=== PATIENT | male | born 1940 | race Caucasian/White ===

== ENCOUNTER 2022-07-14 14:22 | Inpatient (IN) | payer BC, MEDICARE ==
[2022-07-14] MEDS ORDERED: Ondansetron 4 MG/2 ML SDV IVPUSH ONE (14:39)
[2022-07-14] MEDS ORDERED: Sodium Chloride 0.9% 10 ML Syringe FLUSH PRN (14:39)
[2022-07-14] MEDS ORDERED: Diltiazem 25 MG/5 ML SDV IVPUSH ONE (14:40)
[2022-07-14] MEDS ORDERED: Lactated Ringers 1,000 ML IV SCH (14:45)
[2022-07-14 15:21] LABS: ESTIMATED GFR 37 mL/min (>60)
[2022-07-14] MEDS ORDERED: Lactated Ringers 1,000 ML IV ONE (16:30)
[2022-07-14] MEDS ORDERED: Potassium Chloride Riders 40 MEQ in Premix Bag 1 BAG IV ONE (17:14)
[2022-07-14] MEDS ORDERED: Diltiazem 100 MG in Sodium Chloride 0.9% 100 ML IV SCH ×2 (17:15→19:53)
[2022-07-14] MEDS: Potassium Chloride 10 MEQ in Premix Bag 1 BAG IV SCH ×4 (18:01→21:05)
[2022-07-14] MEDS ORDERED: Diltiazem 25 MG/5 ML SDV ONE (19:39)
[2022-07-14] MEDS ORDERED: Albuterol 0.083% 2.5 MG/3 ML Neb Soln NEB PRN (19:53)
[2022-07-14] MEDS ORDERED: Pantoprazole 40 MG Vial IVPUSH SCH (19:53)
[2022-07-14] MEDS ORDERED: LORazepam 2 MG/ML SDV IV PRN (19:53)
[2022-07-14] MEDS: Acetaminophen 325 MG Tab PO PRN (20:13)
[2022-07-14] MEDS: cefTRIAXone 1 GM in Sodium Chloride 0.9% 50 ML IV SCH (21:28)
[2022-07-14] MEDS: Sodium Chloride 0.9% 1,000 ML IV SCH (22:17)
[2022-07-14] MEDS: Nicotine 21 MG/24 Hr Patch TRDERM SCH (23:25)
[2022-07-15] MEDS: Sodium Chloride 0.9% 1,000 ML IV SCH ×2 (05:58→13:38)
[2022-07-15] MEDS: Ondansetron 4 MG/2 ML SDV IV PRN ×2 (06:46→14:43)
[2022-07-15] MEDS ORDERED: Levothyroxine 100 MCG, Levothyroxine 25 MCG PO SCH ×2 (07:30)
[2022-07-15] MEDS ORDERED: Levothyroxine 50 MCG Tab PO SCH (07:30)
[2022-07-15] MEDS: atorvaSTATin 20 MG Tab PO SCH (08:53)
[2022-07-15] MEDS: Nicotine 21 MG/24 Hr Patch TRDERM SCH (08:53)
[2022-07-15] MEDS: prednisoLONE Acetate 1% Ophth Susp 5 ML Bottle EYEBOTH SCH (08:53)
[2022-07-15] MEDS: Tamsulosin 0.4 MG Cap.ER PO SCH (08:53)
[2022-07-15] MEDS: Dutasteride 0.5 MG Cap PO SCH (08:53)
[2022-07-15] MEDS ORDERED: DILTIAZEM HCL 180 MG PO SCH (09:45)
[2022-07-15] MEDS: Diltiazem 180 MG Cap.CD PO SCH ×2 (10:17→20:16)
[2022-07-15] MEDS ORDERED: Warfarin 5 MG Tab PO SCH (13:00)
[2022-07-15] MEDS: Doxycycline 100 MG in Sodium Chloride 0.9% 100 ML IV SCH (14:41)
[2022-07-15] MEDS: Pantoprazole 40 MG Tab.CR PO SCH (14:41)
[2022-07-15] MEDS ORDERED: Pantoprazole 40 MG Vial IVPUSH SCH (16:00)
[2022-07-15] MEDS: Acetaminophen 325 MG Tab PO PRN (20:18)
[2022-07-15] MEDS: cefTRIAXone 1 GM in Sodium Chloride 0.9% 50 ML IV SCH (21:40)
[2022-07-16] MEDS: Doxycycline 100 MG in Sodium Chloride 0.9% 100 ML IV SCH ×3 (02:05→23:53)
[2022-07-16] MEDS ORDERED: Levothyroxine 100 MCG Tab PO SCH (07:30)
[2022-07-16] MEDS: Nicotine 21 MG/24 Hr Patch TRDERM SCH (08:13)
[2022-07-16] MEDS: Diltiazem 180 MG Cap.CD PO SCH ×2 (08:14→20:10)
[2022-07-16] MEDS: prednisoLONE Acetate 1% Ophth Susp 5 ML Bottle EYEBOTH SCH (08:14)
[2022-07-16] MEDS: Tamsulosin 0.4 MG Cap.ER PO SCH (08:14)
[2022-07-16] MEDS: Levothyroxine 50 MCG Tab PO SCH (08:15)
[2022-07-16] MEDS: atorvaSTATin 20 MG Tab PO SCH (08:15)
[2022-07-16] MEDS: Pantoprazole 40 MG Tab.CR PO SCH (08:15)
[2022-07-16] MEDS: Dutasteride 0.5 MG Cap PO SCH (08:15)
[2022-07-16] MEDS: cefTRIAXone 1 GM in Sodium Chloride 0.9% 50 ML IV SCH (21:31)
[2022-07-17] MEDS: Levothyroxine 50 MCG Tab PO SCH (08:12)
[2022-07-17] MEDS: Tamsulosin 0.4 MG Cap.ER PO SCH (08:12)
[2022-07-17] MEDS: Diltiazem 180 MG Cap.CD PO SCH (08:12)
[2022-07-17] MEDS: Dutasteride 0.5 MG Cap PO SCH (08:12)
[2022-07-17] MEDS: Pantoprazole 40 MG Tab.CR PO SCH (08:12)
[2022-07-17] MEDS: atorvaSTATin 20 MG Tab PO SCH (08:12)
[2022-07-17] MEDS: Nicotine 21 MG/24 Hr Patch TRDERM SCH (08:13)
[2022-07-17] MEDS: prednisoLONE Acetate 1% Ophth Susp 5 ML Bottle EYEBOTH SCH (08:13)
== END 2022-07-17 12:19 | disposition home or self-care (01) | DRG 193 ==
LOC: JP.ED 14:22 → JP.ICU 17:14
PROVIDERS: ADMIT Hospitalist; ATTEND Hospitalist
DX: K52.9 Noninfective gastroenteritis and colitis, unspecified (principal); J18.9 Pneumonia, unspecified organism; J96.21 Acute and chronic respiratory failure with hypoxia; I10 Essential (primary) hypertension; J44.0 Chronic obstructive pulmonary disease with (acute) lower respiratory infection; I48.91 Unspecified atrial fibrillation; E86.0 Dehydration; N18.32 Chronic kidney disease, stage 3b; F17.210 Nicotine dependence, cigarettes, uncomplicated; K42.9 Umbilical hernia without obstruction or gangrene; E05.90 Thyrotoxicosis, unspecified without thyrotoxic crisis or storm; Z79.899 Other long term (current) drug therapy; Z79.890 Hormone replacement therapy; Z79.01 Long term (current) use of anticoagulants; I12.9 Hypertensive chronic kidney disease with stage 1 through stage 4 chronic kidney disease, or unspecified chronic kidney disease; Z20.822 Contact with and (suspected) exposure to COVID-19
CPT/HCPCS: 36415; 71046; 71046-26; 74019; 74019-26; 80048; 80053; 81001; 83605; 83735; 84145; 84484; 85025; 85610; 87086; 94640; A9270-GY; C9113; J0696; J1790; J2060; J2405; J3480; J3490; J7030; J7120; U0002